=== PATIENT | female | born 1950 | race Hispanic/Latino ===

== ENCOUNTER 2025-06-09 19:31 | Emergency (ER) | payer OTHER ==
[~2025-06-09] VITALS: Ht 149.9 cm; Wt 99.8 kg
--- NOTE | 2025-06-09 19:38 | NUR ---
UA CUP PROVIDED
--- NOTE | 2025-06-09 19:43 | NUR ---
TRIAGE EDIT. PT REMEMBERED PMH
[2025-06-09 20:17] LABS: IMMATURE GRANULOCYTE ABSOLUTE 0.08 K/uL (0-1); NUCLEATED RED BLOOD CELLS 0.0 % (0.0-0.19); PLATELET COUNT (AUTO) 445 K/uL (130-400); RED BLOOD CELL COUNT(AUTO) 4.80 MIL/uL (4.00-5.50); RED CELL DISTRIBUTION WIDTH 13.7 % (11.0-15.5); WHITE BLOOD COUNT (AUTO) 18.2 K/uL (4.8-10.8)
[2025-06-09 20:28] LABS: CREATININE 1.0 mg/dL (0.5-1.0); GLOMERULAR FILTR. RATE CALC 59.0 mL/min (>90); GLUCOSE,RANDOM 320.0 mg/dL (70-105); SODIUM SERUM 133.0 mmol/L (136-145); UREA NITROGEN, BLOOD 20.0 mg/dL (7-18)
--- NOTE | 2025-06-09 21:44 | NUR ---
PATIENT UNABLE TO COLLECT URINE SPECIMEN, REPORTS SEVERAL EPISODES OF DIARRHEA WHEN ATTEMPTING TO URINATE INTO NUNS CAP.
--- NOTE | 2025-06-09 22:01 | NUR ---
CALLED LAB, SPOKE TO AMBER, ADD ON TROP
--- NOTE | 2025-06-09 22:09 | EKG ---
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
--- NOTE | 2025-06-09 22:28 | NUR ---
Norah oakley in [facility] - 06/09/25 at 2228 by RANDAL PT REP
--- NOTE | 2025-06-09 22:28 | NUR ---
PT CARE ASSUMED AT THIS TIME
[2025-06-09 23:14] LABS: ADD UA MICROSCOPIC YES; APPEARANCE,URINE CLOUDY (CLEAR); GLUCOSE, URINE (UA) >=1000 mg/dL (NEGATIVE); LEUKOCYTE ESTERASE ,URINE NEGATIVE Leu/uL (NEGATIVE); NITRATE,URINE NEGATIVE (NEGATIVE); OCCULT BLOOD,URINE +- (TRACE) (NEGATIVE)
--- NOTE | 2025-06-09 23:26 | ERN ---
ED Note History of Present Illness Stated Complaint: ABD PAIN, VOMITING Chief Complaint: Abdominal Pain Time Seen by MD: 19:42 Dictation: This is a 74-year-old morbidly obese female from [place] visiting family in [place] presented to the emergency room with complaints of midabdominal pain and vomitings. Patient stated that she has had these symptoms off and on for many years and she has been evaluated in [place] and was told she had infection unclear if it was H pylori or if she had enterocolitis. She apparently took antibiotics long time ago. She began experiencing cramping in the middle abdomen associated with symptoms of nausea vomitings all day today. Also stated that she had loose stool somewhat liquidy. No fever chills or rigors no hematemesis or melena. No other family members are sick Temperature 98 0.2 pulse 85 respirations 20 blood pressure 114/54 with a pulse oximetry of 99% on room air BMI more than 44 Her chronic medical problems include diabetes mellitus type 2, hypertension, morbid obesity Allergies: Coded Allergies: celecoxib (Unverified Allergy, Unknown, 06/09/25) simvastatin (Unverified Allergy, Unknown, 06/09/25) sulfamethoxazole (Unverified Allergy, Unknown, 06/09/25) tramadol (Unverified Allergy, Unknown, 06/09/25) trimethoprim (Unverified Allergy, Unknown, 06/09/25) Past Medical History Past Medical History: Diabetes-Type II, Hypertension Surgical History: Hysterectomy, Cholecystectomy Family History: Negative Social History: Negative History: Not Applicable RN Note Reviewed/Agreed w/PFSH: Yes Review of System Dictation Constitutional: Negative for fever,chills, and weight loss Eyes: Negative for injury, pain,redness, and discharge ENT: Negative for injury,pain or swelling Cardiovascular: Negative for chest pain, palpitations, and edema Respiratory: Negative for shortness of breath, cough, and wheezing, Abdomen/GI: Positive for abdominal pain, nausea, vomiting, diarrhea, Back: Negative for injury and pain : Negative for injury, bleeding and discharge MS/Extremity: Negative for injury and deformity Skin: Negative for rash, and discoloration Neuro: Negative for headache, weakness, numbness, tingling, and seizure Psych: Negative for suicide ideation, homicidal ideation, and hallucinations Initial Vital Sign VS Vital Signs Date Time Temp Pulse Resp B/P (MAP) Pulse Ox O2 Delivery O2 Flow Rate FiO2 06/09/25 19:38 98.1 85 20 114/54 99 Room Air 06/09/25 22:31 0 21 Physical Exam Dictation General: awake, alert, NAD extremely obese Head/Face: Normocephalic, atraumatic Eyes: PERRL, EOMI, vision at baseline ENT: oral cavity clear, TMs clear, no signs of infection Neck: Trachea midline, supple, no nuchal rigidity Cardiovascular: RRR, normal S1/S2, No MRGs, no JVD Respiratory: CTAB, no respiratory distress, No rales or wheezes Abdomen: Soft, moderate adiposity mild tenderness, normal bowel sounds, no guarding or rebound. Skin: Warm, dry, normal turgor, no rash MS/Extremity: Pulses equal, no cyanosis, neurovascular intact, FROM Neuro: COAx4, GCS 15, strength 5/5, CN 2-12 intact, normal cerebellar exam, normal gait, Psych: Normal behavior, mood, and affect normal Extremities-trace edema without any palpable cords, Homans sign is negative chronic venous insufficiency with hyperpigmentation and venous stasis Results (Laboratory/Radiology) Laboratory/Radiology Laboratory Tests Test 06/09/25 19:52 06/09/25 22:49 White Blood Count 18.2 K/uL (4.8-10.8) H Red Blood Count 4.80 MIL/uL (4.00-5.50) Hemoglobin 13.3 g/dL (12.0-16.0) Hematocrit 42.3 % (36-48) Mean Corpuscular Volume 88.1 fL (79-99) Mean Corpuscular Hemoglobin 27.7 pg (27.0-33.0) Mean Corpuscular Hemoglobin Concent 31.4 g/dL (32.0-36.0) L Red Cell Distribution Width 13.7 % (11.0-15.5) Platelet Count 445 K/uL (130-400) H Mean Platelet Volume 10.7 fL (7.5-10.5) H Immature Granulocyte % (Auto) 0.4 % (0-1) Neutrophils (%) (Auto) 87.7 % (40.0-77.0) H Lymphocytes (%) (Auto) 8.7 % (21.0-51.0) L Monocytes (%) (Auto) 2.3 % (3.0-13.0) L Eosinophils (%) (Auto) 0.6 % (0.0-8.0) Basophils (%) (Auto) 0.3 % (0.0-5.0) Neutrophils # (Auto) 16.0 K/uL (1.8-7.7) H Lymphocytes # (Auto) 1.6 K/uL (1.0-4.8) Monocytes # (Auto) 0.4 K/uL (0.1-1.0) Eosinophils # (Auto) 0.11 K/uL (0.00-0.70) Basophils # (Auto) 0.05 K/uL (0.00-0.20) Absolute Immature Granulocyte (auto 0.08 K/uL (0-1) Nucleated Red Blood Cells 0.0 % (0.0-0.19) White Cell Morphology Comment See comments Sodium Level 133 mmol/L (136-145) L Potassium Level 4.6 mmol/L (3.5-5.1) Chloride Level 97 mmol/L (101-111) L Carbon Dioxide Level 28 mmol/L (21-32) Blood Urea Nitrogen 20 mg/dL (7-18) H Creatinine 1.0 mg/dL (0.5-1.0) Glomerular Filtration Rate Calc 59 mL/min (>90) Random Glucose 320 mg/dL (70-105) H Total Calcium 9.4 mg/dL (8.5-10.1) Troponin I High Sensitivity 5 ng/L (4-50) Lipase 31 U/L (16-77) Urine Color YELLOW (YELLOW) Urine Appearance CLOUDY (CLEAR) H Urine pH 6.0 (5.0-8.0) Urine Specific Given 1.034 (1.001-1.031) Urine Protein 300 mg/dL (NEGATIVE) H Urine Glucose (UA) >=1000 mg/dL (NEGATIVE) H Urine Ketones 5 mg/dL (NEGATIVE) H Urine Occult Blood +- (TRACE) (NEGATIVE) H Urine Nitrate NEGATIVE (NEGATIVE) Urine Bilirubin NEGATIVE mg/dL (NEGATIVE) Urine Urobilinogen 0.2 mg/dL (0.2-1.0) Urine Leukocyte Esterase NEGATIVE Roopa/uL Urine RBC 2-5 /HPF (0-1) H Urine WBC 0-1 /HPF (0-1) Urine Squamous Epithelial Cells 10-25 /HPF (0-2) Urine Bacteria Moderate /HPF (None Seen) H Labs Reviewed?: Yes CT Scan Comment: REASON: ABD PAIN ORDERING PHYSICIAN: PAT PURVIS MD PROCEDURE: ABD PEL WO - CT ABDOMEN/PELVIS W/O CONTRAST EXAM: CT Abdomen and Pelvis Without IV contrast CLINICAL HISTORY: ABD PAIN TECHNIQUE: Axial computed tomography images of the abdomen and pelvis without intravenous contrast. CONTRAST: No IV contrast. COMPARISON: None provided. FINDINGS: LUNG BASES: 0.6 cm pulmonary nodule in the left lower lobe of the lung. 0.3 cm subpleural nodule in the right lung base. LIVER: Unremarkable. GALLBLADDER AND BILE DUCTS: The gallbladder is surgically absent. No biliary ductal dilatation is evident. PANCREAS: Mildly atrophied. SPLEEN: Unremarkable. ADRENAL GLANDS: Unremarkable. KIDNEYS, URETERS, AND BLADDER: The kidneys appear within normal limits. There is no hydronephrosis or hydroureter. No urinary calculi are seen. Nonspecific perinephric fat stranding is noted bilaterally. A subcentimeter hypodense lesion is seen in the right kidney, too small to characterize . The urinary bladder is incompletely distended at the time of examination, limiting the evaluation. STOMACH AND BOWEL: There is a long segment concentric wall thickening with surrounding fat stranding involving the small and proximal large bowel loops, likely representing an infectious or inflammatory process. Bowel ischemia could be a differential in the right clinical setting. 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 No pneumatosis or pneumoperitoneum is evident. Uncomplicated colonic diverticula. No bowel obstruction. APPENDIX: No evidence of acute appendicitis on CT examination. PERITONEUM: No free air. Mesenteric edema is seen. A small amount of free fluid is seen in the abdomen and pelvis. LYMPH NODES: No lymphadenopathy is evident. REPRODUCTIVE: The uterus is surgically absent. No evidence of adnexal mass. VASCULATURE: The aorta and its branches demonstrate atheromatous calcification without evidence of aneurysm. BONES: No aggressive appearing osseous lesion. No acute osseous pathology evident. Osseous degenerative changes are noted. A small umbilical hernia is seen containing fat and fluid without incarceration. Abdominal wall edema is seen. A small soft tissue nodule is seen in the left breast incompletely imaged axial image 1, series 2. IMPRESSION: There is a long segment concentric wall thickening with surrounding fat stranding involving the small and proximal large bowel loops, likely representing an infectious or inflammatory process. Bowel ischemia could be a differential in the right clinical setting. Trace ascites. 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 No pneumatosis or pneumoperitoneum is evident. Recommend CTA abdomen and pelvis for further evaluation. A small soft tissue nodule in the left breast, incompletely imaged. Suggest follow-up stop or further evaluation as indicated. Incidental pulmonary nodules. /[place] DICTATED BY: KENJI SAMUELS Jr., MD DATE: 06/10/25150 ELECTRONICALLY SIGNED BY: KENJI SAMUELS Jr., MD DATE: 06/10/25150 ED Course ED Course Orders Procedure Category Date Status Time Vital Signs Per CPOE 06/09/25 Transmitted Routine 19:38 Saline Lock Iv CPOE 06/09/25 Transmitted 19:38 Cbc With Differential LAB 06/09/25 Complete 19:38 Lipase LAB 06/09/25 Complete 19:38 Urinalysis Profile LAB 06/09/25 Complete 19:38 Basic Metabolic Panel LAB 06/09/25 Complete 19:38 Troponin I High LAB 06/09/25 Complete Sensitivity 22:00 12 Lead Ekg Tracing- EKG 06/09/25 Complete Technical 22:00 Morphine 4mg Syg PHA 06/09/25 Complete (Morphine 4mg Syg) 23:30 Ondansetron 4mg Inj PHA 06/09/25 Complete (Zofran 4mg Inj) 23:30 Famotidine 20mg Vial PHA 06/09/25 Complete (Pepcid 20mg Vial) 23:30 Ct Abdomen/Pelvis W/O CT 06/09/25 Resulted Contrast 23:18 Culture Urine GREGORIA 06/09/25 In Process 23:25 0.9%Nacl 1000ml (Ns PHA 06/09/25 Complete 1000ml) 23:30 Current Medications Medications (Trade) Dose Ordered Sig/Jan Route PRN Reason Start Time Stop Time Status Last Admin Dose Admin Famotidine (Pepcid 20mg Vial) 20 mg ONCE ONCE IV 06/09/25 23:30 06/09/25 23:31 DC 06/10/25 00:21 Morphine Sulfate (morPHINE 4MG SYG) 4 mg ONCE ONCE IVP 06/09/25 23:30 06/09/25 23:31 DC 06/10/25 00:21 Ondansetron HCl (zoFRAN 4MG INJ) 4 mg ONCE ONCE IVP 06/09/25 23:30 06/09/25 23:31 DC 06/10/25 00:21 Sodium Chloride 1,000 ml @ 0 mls/hr ONCE ONCE IV 06/09/25 23:30 06/09/25 23:31 DC 06/10/25 00:22 Vital Signs Date Time Temp Pulse Resp B/P (MAP) Pulse Ox O2 Delivery O2 Flow Rate FiO2 06/09/25 22:31 98.1 84 15 175/60 100 Room Air* 0 21 06/09/25 19:38 98.1 85 20 114/54 99 Room Air Medical Decision Making MDM Differential diagnosis-Gastritis, esophagitis, gastroesophageal reflux disease, acute cholecystitis, peptic ulcer disease, gastroenteritis, colitis, constipation, pancreatitis, mesenteric edema, gastroparesis This is a 74-year-old morbidly obese female from [place] visiting family in [place] presented to the emergency room with complaints of midabdominal pain and vomitings. Patient stated that she has had these symptoms off and on for many years and she has been evaluated in [place] and was told she had infection unclear if it was H pylori or if she had enterocolitis. She apparently took antibiotics long time ago. She began experiencing cramping in the middle abdomen associated with symptoms of nausea vomitings all day today. Also stated that she had loose stool somewhat liquidy. No fever chills or rigors no hematemesis or melena. No other family members are sick Temperature 98 0.2 pulse 85 respirations 20 blood pressure 114/54 with a pulse oximetry of 99% on room air BMI more than 44 Her chronic medical problems include diabetes mellitus type 2, hypertension, mo rbid obesity 9:00 p.m. labs reviewed CBC showed a white count of 18.2 hemoglobin 13.3 platelets 445. BNP 7 showed a BUN and creatinine of 20 and 1.0 sodium 133 chloride 97 bicarb 28. Blood glucose is 320 I updated the patient and daughter on possibilities and labs so far and with significant leukocytosis there maybe a recurrent colitis or perhaps demargination from hyperglycemia and vomitings. I plan to do a CT scan of the abdomen and pelvis. Patient indicated that this has been a chronic problem for her and intermittently it gets aggravated and she had extensive evaluation done in [place]. 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 I recommended admission to the hospital however patient stated that she would rather get back to [place] to be seen by her regular doctors as she clinically feels much improved after symptomatic treatment. She stated that she would fill the prescriptions 1st thing in the morning and they we will be driving back to [place] tomorrow Rationale: Tests considered and ordered secondary to shared decision making include: Blood work urinalysis and CT scan of the abdomen Previous outside records reviewed: Old ER visits. Risk of complication and/or morbidity or mortality of patient management: None Medications-Per medication reconciliation Need for hospitalization: Patient does meet criteria for hospitalization.- patient is from [place] and she absolutely has to get back to [place] tomorrow so she refused to stay in the hospital but promises to take antibiotics and follow up with her regular doctors in [place]. Need for emergency major/minor surgery: No There are no social concerns with this patient. Prescription drug management Prescriptions will include symptomatic care Patient's prior external medical records from other ER visits were reviewed by me as indicated. Prior testing and results from previous visits were reviewed. Prior tests were taken into account with medical decision making and resource utilization, independent historian/historians were used to obtain complete medical history. I independently interpreted the test that were performed, results were reviewed by me and considered findings on radiology if ordered. Medical management and examination interpretation discussions were had by me with other qualified healthcare professionals as indicated for the patient's care. Problem List Problem List: (1) Colitis (2) Uncontrolled diabetes mellitus with hyperglycemia (3) Hyponatremia (4) Dehydration (5) Leukocytosis DX & DISP Disposition: Discharge Departure Impression: Primary Impression: Colitis Additional Impressions: Uncontrolled diabetes mellitus with hyperglycemia, Hyponatremia, Dehydration, Leukocytosis Condition: Stable Scripts Ciprofloxacin HCl (Cipro) 500 Mg Tablet 1 TAB PO BID for 10 Days, #20 TAB 0 Refills Prov: PAT PURVIS MD 06/10/25 Ondansetron (Ondansetron Odt) 4 Mg Tab.rapdis 4 MG PO Q6HPRN PRN for nausea, #16 TAB 0 Refills Prov: PAT PURVIS MD 06/10/25 Additional Instructions: Patient and the caregiver have been informed of all the diagnostic tests and the imaging conducted during the today's visit to the emergency room and has verbalized understanding of the results I have personally reviewed and interpreted all diagnostic exams performed here in the ER today as well as the vital signs documented by the nursing staff. The patient is now being discharged to home and should follow up with the primary care physician or the specialist as directed by the ER staff. Extensive counseling done on Weight loss diet and exercise stressed and education done. Adverse effects of medications risks benefits of antibiotics were all discussed with the patient. . Regular followups. Since I am concerned about possible chronic mesenteric ischemia, or perhaps persistent colitis, I instructed her to follow up with her doctors as soon as she reaches [place]. Referrals: SELF,REFERRAL (PCP) PAT PURVIS MD Jun 09, 2025 23:25
[2025-06-10] MEDS: FAMOTIDINE 20MG VIAL IV ONE (00:21)
[2025-06-10] MEDS: 0.9%NACL 1000ML 1,000 ML IV ONE (00:22)
--- NOTE | 2025-06-10 00:52 | HMCIMG ---
EXAM: CT Abdomen and Pelvis Without IV contrast CLINICAL HISTORY: ABD PAIN TECHNIQUE: Axial computed tomography images of the abdomen and pelvis without intravenous contrast. CONTRAST: No IV contrast. COMPARISON: None provided. FINDINGS: LUNG BASES: 0.6 cm pulmonary nodule in the left lower lobe of the lung. 0.3 cm subpleural nodule in the right lung base. LIVER: Unremarkable. GALLBLADDER AND BILE DUCTS: The gallbladder is surgically absent. No biliary ductal dilatation is evident. PANCREAS: Mildly atrophied. SPLEEN: Unremarkable. ADRENAL GLANDS: Unremarkable. KIDNEYS, URETERS, AND BLADDER: The kidneys appear within normal limits. There is no hydronephrosis or hydroureter. No urinary calculi are seen. Nonspecific perinephric fat stranding is noted bilaterally. A subcentimeter hypodense lesion is seen in the right kidney, too small to characterize . The urinary bladder is incompletely distended at the time of examination, limiting the evaluation. STOMACH AND BOWEL: There is a long segment concentric wall thickening with surrounding fat stranding involving the small and proximal large bowel loops, likely representing an infectious or inflammatory process. Bowel ischemia could be a differential in the right clinical setting. 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 No pneumatosis or pneumoperitoneum is evident. Uncomplicated colonic diverticula. No bowel obstruction. APPENDIX: No evidence of acute appendicitis on CT examination. PERITONEUM: No free air. Mesenteric edema is seen. A small amount of free fluid is seen in the abdomen and pelvis. LYMPH NODES: No lymphadenopathy is evident. REPRODUCTIVE: The uterus is surgically absent. No evidence of adnexal mass. VASCULATURE: The aorta and its branches demonstrate atheromatous calcification without evidence of aneurysm. BONES: No aggressive appearing osseous lesion. No acute osseous pathology evident. Osseous degenerative changes are noted. A small umbilical hernia is seen containing fat and fluid without incarceration. Abdominal wall edema is seen. A small soft tissue nodule is seen in the left breast incompletely imaged axial image 1, series 2. IMPRESSION: There is a long segment concentric wall thickening with surrounding fat stranding involving the small and proximal large bowel loops, likely representing an infectious or inflammatory process. Bowel ischemia could be a differential in the right clinical setting. Trace ascites. 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 No pneumatosis or pneumoperitoneum is evident. Recommend CTA abdomen and pelvis for further evaluation. A small soft tissue nodule in the left breast, incompletely imaged. Suggest follow-up stop or further evaluation as indicated. Incidental pulmonary nodules. /[place]
[2025-06-10] MEDS ORDERED: CIPR-278 PO (01:11)
[2025-06-10] MEDS ORDERED: ONDA-243 PO (01:11)
[2025-06-10] MEDS: CLINDAMYCIN 150 MG CAP PO ONE (01:22)
--- NOTE | 2025-06-10 01:22 | NUR ---
FINGER STICK PREFORMED AT BEDSIDE VERBALLY ORDERED BY ED MD DILLONU. ED MD MADE AWARE OF RESULT.
[2025-06-10 01:52] VITALS: BP 130/60; PULSE 65; RESP 17; TEMP 98.1; O2SAT 99
== END 2025-06-10 01:58 | disposition home or self-care (01) ==
LOC: EDH 19:31
DX: K52.9 Noninfective gastroenteritis and colitis, unspecified (principal); E11.65 Type 2 diabetes mellitus with hyperglycemia; E87.1 Hypo-osmolality and hyponatremia; E86.0 Dehydration; D72.829 Elevated white blood cell count, unspecified; R11.2 Nausea with vomiting, unspecified; I10 Essential (primary) hypertension; Z88.1 Allergy status to other antibiotic agents; Z88.5 Allergy status to narcotic agent; Z88.2 Allergy status to sulfonamides; Z90.49 Acquired absence of other specified parts of digestive tract; Z90.710 Acquired absence of both cervix and uterus
CPT/HCPCS: 99285; 74176; 84484; 80048; 83690; 85025; 87086; 82948; 81001; 36415; 93005; 96374; 96375; J1308; J7030; J2405; J2270